=== PATIENT | male | born 1995 | race Caucasian/White ===

== ENCOUNTER 2016-07-09 00:14 | Emergency (ER) | payer BC | END 2016-07-09 01:56 | disposition home or self-care (01) | LOC: D.ER 00:14 | DX: S62.304A Unspecified fracture of fourth metacarpal bone, right hand, initial encounter for closed fracture (principal); W22.01XA Walked into wall, initial encounter; Y93.89 Activity, other specified; Y92.89 Other specified places as the place of occurrence of the external cause ==

== ENCOUNTER 2016-07-26 07:14 | Day surgery (SDC) | payer SELFPAY ==
[~2016-07-26] VITALS: Ht 193 cm; Wt 83.9 kg
[~2016-07-26 07:14] MED LIST: NORCO 7.5/325 T1 TA1 PO
[2016-07-26 08:31] VITALS: BP 131/76; Ht 193 cm; Wt 83.9 kg
--- NOTE | 2016-07-26 11:39 | NUR ---
RT ARM IN RR ON ADMIT
--- NOTE | 2016-07-26 11:44 | NUR ---
OPA IN AIRWAY ON ADMIT
[2016-07-26] MEDS ORDERED: HYDROCODONE-APA1 TAB (12:00)
--- NOTE | 2016-07-26 14:42 | NUR ---
1245 IV DC WITH CATHER TIP INTACT
--- NOTE | 2016-07-27 15:24 | OP ---
PATIENT NAME: TERRANCE SUE MEDICAL RECORD: [id number] :95 LOCATION:[facility] ADMISSION DATE: SURGEON: YENY LERNER MD DATE OF OPERATION: 07/26/2016 Orthopedic Surgery Operative Note PREOPERATIVE DIAGNOSIS: Displaced angulated right fifth metacarpal fracture. POSTOPERATIVE DIAGNOSIS: Displaced angulated right fifth metacarpal fracture. PROCEDURE: Open reduction of displaced right fifth metacarpal fracture. SURGEON: Yeny Lerner MD. ANESTHESIA: General. INTRAOPERATIVE COMPLICATIONS: None. SUMMARY OF PATHOLOGIC FINDINGS: This is essentially approximately 2-1/2 to 3 weeks out, which was consistent with what was seen at the time of surgery, early healing in a malunited position was beginning. OPERATIVE SUMMARY IN DETAIL: After obtaining the appropriate preoperative orthopedic surgery consent as well as anesthetic consultation, evaluation and clearance, the patient was brought to the operating room and placed on operating table in supine position. After general laryngeal mask was administered, tourniquet was placed about the proximal aspect of the right upper extremity. Right upper extremity was then prepped and draped in a routine sterile fashion. The arm was elevated and exsanguinated, tourniquet inflated to 250 mmHg. An incision was made along the dorsal lateral aspect of the right small finger. This was taken down to just proximal to the MCP joint. Dissection was carried down. Gentle incision was made over the dorsal felipe, saved for later reapproximation. The fracture was identified and all interposed early healing tissue was removed and then 2 K-wires were placed across the fracture, it was held in a reduced position for provisional fixation. This looked good on AP and lateral planes and then a small 1.7 T-plate was then placed with serial and sequential drill and fill technique using a combination of both compression and locking screws. This resulted in anatomic adventist. The provisional K wires were removed, radiographs were taken and submitted for final radiologist review. The wound was then copiously irrigated. The dorsal extensor mechanism was reapproximated using the 2-0 Vicryl. This was followed by 4-0 Prolene in running fashion. Sterile dressings were applied. Tourniquet was deflated. An ulnar gutter splint was applied and allowed to harden. The patient was awakened and taken to the recovery room in stable condition. All final needle and sponge counts were correct. TRANSINT:[id number] Voice Confirmation ID: [id number] DOCUMENT ID: [id number] OPERATIVE REPORT [id number] TERRANCE SUE MD, YENY EVANS at 1524 CC: [id number] DICTATION DATE: 07/26/16 1337 PASTER SUPERVISOR: 07/27/16 0215 [facility] 07/26/16 [place] [id number] [place] [id number]
== END 2016-07-26 13:15 | disposition home or self-care (01) ==
LOC: D.OPS 07:14 → D.PAN 09:45 → D.OPS 09:45
DX: S62.306A Unspecified fracture of fifth metacarpal bone, right hand, initial encounter for closed fracture (principal); X58.XXXA Exposure to other specified factors, initial encounter

== ENCOUNTER 2016-08-11 05:01 | Observation (INO) | payer SELFPAY ==
[2016-08-11] VITALS (13 sets, daily range): BP systolic 95–131; BP diastolic 65–91; Ht 193 cm; Wt 85.6 kg
[~2016-08-11] VITALS: Ht 193 cm; Wt 85.6 kg
--- NOTE | ~2016-08-11 | EC ---
PATIENT:TERRANCE SUE DATE OF SERVICE: 08/11/16 SEX: M MEDICAL RECORD: [id number] DATE OF : [birth year] LOCATION:[facility] AGE OF PATIENT: 21 ADMISSION DATE: 08/11/16 REFERRING PHYSICIAN: INTERPRETING PHYSICIAN: ARCELIA VALDEZ MD ECHOCARDIOGRAM REPORT ECHO CHARGES 4 ECHO COMPLETE CLINICAL DIAGNOSIS: BRADYCARDIA/METH OD ECHOCARDIOGRAPHIC MEASUREMENTS (adult normal given) AC root (d.<3.7cm) 3.1 LV Septum d (<1.2 cm> 0.9 Valve Excursion 2.5 LV Septum (systole) 1.4 Left Atria (s.<4.0cm> 2.7 LVPW d(<1.2cm) 1.1 RV (d.<2.3cm) 2.8 LVPW (sytole) 1.5 LV diastole(<5.6CM) 6.0 MV E-F(>70mm/sec) LV systole 4.1 LVOT Diameter 2.1 MV exc.(>10mm) Est.ejection fraction (50-75%) Pericardial Effusion N DOPPLER: LVIT A 48.0 E 77.0 LA RVSP 30.0 LVOT 102 AOP1/2T Asc. Ao 122 RVOT 74.0 RA PA 111 AV Gradient Peak 6.0 AV Mean 3.0 AV Area 2.8 MV Gradient Peak 3.8 MV Mean 1.7 MV Area COMMENTS: Landscape Specialist: Tania RAUSCHOE Administrative Underwriter:10 Dr. Pisano TAPE# PACS DATE OF SERVICE: 08/11/2016 TWO-DIMENSIONAL ECHOCARDIOGRAM WITH DOPPLER Adequate two-dimensional color flow imaging, spectral Doppler, and M mode. No left ventricular hypertrophy is present. Left ventricular internal dimensions are normal. Wall motion is normal. Ejection fraction is greater than or equal to 55%. The aortic valve is tricuspid with no evidence of stenosis on Doppler interrogation. Left atrium is normal. Mitral valve shows no prolapse with trace mitral regurgitation. Right-sided chambers are grossly normal with trace tricuspid ECHOCARDIOGRAM REPORT [id number] TERRANCE SUE regurgitation. ARCELIA VALDEZ MD CC: [id number] DICTATION DATE: 08/12/16 1200 TRACK LAYING MACHINE OPERATOR: DM 08/13/16 1458 DIS IN 08/12/16 [facility] [address] [facility] [address]
[~2016-08-11 05:01] MED LIST changes: +HYDROCODONE-APA1 TAB
[2016-08-11 05:43] LABS: BASOPHILS 0.2 % (0-2); EOSINOPHILS 0.8 % (0-7); HEMATOCRIT 40.7 % (42.0-54.0); HEMOGLOBIN 14.4 g/dL (13.5-17.5); IMMATURE GRANULOCYTES 0.1 % (0-5); LYMPHOCYTES 23.2 % (15-50); MCH 30.9 pg (26.0-34.0); MCHC 35.4 g/dL (31.0-37.0); MCV 87.3 fL (80.0-100.0); MEAN PLATELET VOLUME 9.7 fL (7.4-10.4); MONOCYTES 7.5 % (2-11); NEUTROPHILS 68.2 % (40-80); PLATELET COUNT 255 10x3/uL (130-400); RBC 4.66 10x6/uL (4.20-6.10); RDW 12.4 % (11.5-14.5); WBC 8.5 10x3/uL (4.8-10.8)
[2016-08-11 06:02] LABS: ALBUMIN 4.1 g/dL (3.4-5.0); ALKALINE PHOSPHATASE 111 U/L (46-116); ALT (SGPT) 12 U/L (10-68); CALC OSMOLALITY 275 mosm/kg (275-300); CALCIUM 8.2 mg/dL (8.5-10.1); CHLORIDE - SERUM 104 mmol/L (98-107); CREATININE - SERUM 1.2 mg/dL (0.6-1.3); GLUCOSE 122 mg/dL (74-106); PROTEIN - SERUM 7.3 g/dL (6.4-8.2); SODIUM 138 mmol/L (136-145); UREA NITROGEN 9 mg/dL (7-18); eGFR NON AFRICAN AMERICAN 81 mL/min (90-120)
[2016-08-11 06:05] LABS: UDS - AMPHET POSITIVE QUAL (NEGATIVE); UDS - BARB NEGATIVE QUAL (NEGATIVE); UDS - BENZO NEGATIVE QUAL (NEGATIVE); UDS - COCAINE NEGATIVE QUAL (NEGATIVE); UDS - METH NEGATIVE QUAL (NEGATIVE); UDS - OPIATE NEGATIVE QUAL (NEGATIVE); UDS - PCP NEGATIVE QUAL (NEGATIVE); UDS - THC NEGATIVE QUAL (NEGATIVE)
[2016-08-11 06:07] LABS: POTASSIUM - SERUM 2.7 mmol/L (3.5-5.1)
[2016-08-11 06:15] LABS: APPEARANCE CLEAR (CLEAR); BILIRUBIN NEGATIVE (NEGATIVE); COLOR YELLOW (YELLOW); GLUCOSE NEGATIVE (NEGATIVE); KETONE NEGATIVE (NEGATIVE); LEUKOCYTE ESTERASE TRACE (NEGATIVE); NITRITE NEGATIVE (NEGATIVE); PROTEIN 2+ mg/dL (NEGATIVE); UROBILINOGEN NORMAL (NORMAL)
[2016-08-11 06:16] LABS: BACTERIA FEW /hpf (NONE SEEN); EPITHELIAL CELLS 0-5 /hpf (0-5); RED CELLS - URINE 0-5 /hpf (0-5); WHITE CELLS - URINE 0-5 /hpf (0-5)
--- NOTE | 2016-08-11 10:30 | NUR ---
PT ARRIVED AT THIS TIME VIA BED ACCOMPANIED BY HOSPITAL STAFF. PT ABLE TO TRANSFER TO ICU BED WITH MOD ASSIST FROM STAFF. PT IS CONFUSED. WILL CONTINUE PLAN OF CARE.
--- NOTE | 2016-08-11 13:15 | NUR ---
AT BEDSIDE, PT MILDLY ANXIOUS AND WANTING TO LEAVE. HAD LENGTHY DISCUSSION REGARDING HIS HEALTH AND MAKING BETTER CHOICES. HE DOES NOT SEEM TO BE VERY OPEN TO FOLLOWING THROUGH WITH CARE PLAN. WILL CONTINUE TO MONITOR. REMOVED PULSE OX MONITOR. PT'S O2 SAT 99 ON ROOM AIR. WILL GIVE NICOTINE PATCH FOR TOBACCO CRAVING.
--- NOTE | 2016-08-11 13:40 | NUR ---
LAB AT BEDSIDE TO DRAW POTASSIUM
--- NOTE | 2016-08-11 15:54 | NUR ---
EXPERIENCE DESIGN DIRECTOR AT BEDSIDE.
--- NOTE | 2016-08-11 17:08 | NUR ---
PT RESTING IN BED WITH EYES CLOSED. RESP EQUAL AND UNLABORED. CALL LIGHT WITHIN REACH.
--- NOTE | 2016-08-11 19:30 | NUR ---
1930: Pt rec'd resting HOB 45 degrees with eyes open. Pupils KINZA+bilat. SMCx4 = weak bilat cooperative manager. Moves extrem x4 vs gravity. Pt reports "broken" right hand. Pt states he has a "little pain", but "not bad." Pt does not request pain Rx at this time. Breathing RA RR16x with SPO2 98%. Lungs clear bilat with auscultation. MMP and no cyanosis noted. S1S2 regular SR on CM. PPPx4=bilat. ABD soft NT BS x4 active. Pt denies difficulty wtih elimination. Pt states he has only one kidney. All monitors attached and alarms on. Bed Alarm on, SR up x2, Call light in reach and pt demostrates use. Emptied urinal, provided water, and adjusted room enviroment for pt comfort.
--- NOTE | 2016-08-11 20:45 | NUR ---
2045: Pt requested visitation schedule and password. Provided to patient. Pt denies any needs at this time. Pt talking on phone. Pt remains SR 80's on CM.
--- NOTE | 2016-08-11 21:00 | NUR ---
2100: Pt requested something for pain. Pt states he is "coming down from the drugs" he has taken. Pt states he has been taking "Percocet" and other pain killers for about "3 weeks." Discussed withdraw sx with patient who verbalozed understanding. Notifed ER MD (business unit controller) about pt condition and request. Librium ordered at this time.
[2016-08-12] VITALS (10 sets, daily range): BP systolic 104–118; BP diastolic 62–80
--- NOTE | 2016-08-12 01:00 | NUR ---
0100: Pt resting with eyes closed. Pt able to move self and is resting on left side. Pt SB/SR 55-65 bpm at this time. Pt remains on RA with RR16x with SPO2 97%. No change in IVF/UOP.
--- NOTE | 2016-08-12 04:30 | NUR ---
0430: Pt resting in bed with eyes closed. Pt remains SB/SR 55-65 bpm. No change in RESP/CV/NV status.
--- NOTE | 2016-08-12 09:41 | NUR ---
C/O RASH AND ITCHING. HAS RED RASH ON ANTERIOR/POSTERIOR TORSO AND RIGHT ARM. I CALLED DR. HEARN. ORDERS REC'D FOR SOLU-MEDROL 40MG IV X1.
[2016-08-12] MEDS ORDERED: MEDROL DOSE PACK4 MG PO (12:08)
--- NOTE | 2016-08-12 12:50 | NUR ---
1230 IN TO ROUND ON PT, NEW ORDERS TO DISCHARGE PT HOME. ALL PAPERWORK REVIEWED WITH PT. PT MOM IS PICKING PT UP FROM HOSPITAL. VSS, NO COMPLAINTS. ALL QUESTIONS ANSWERED. PIV REMOVED, PT DRESSED HIMSELF WITH OUT ANY DIFICULTY.
== END 2016-08-12 13:26 | disposition home or self-care (01) ==
LOC: D.ER 05:01 → D.ICU 08:33 → OBSVTIME 08:33 → D.ICU 08:33
PROVIDERS: Emergency Medicine; ADMIT Family Medicine
DX: T43.624A Poisoning by amphetamines, undetermined, initial encounter (principal); T51.0X4A Toxic effect of ethanol, undetermined, initial encounter; Y92.9 Unspecified place or not applicable; Z72.0 Tobacco use

== ENCOUNTER 2017-05-01 22:22 | Emergency (ER) | payer OTHER ==
[2016-08-11 11:06] VITALS: BMI 22.9
[~2017-05-01 22:22] MED LIST changes: +MEDROL DOSE PACK4 MG PO
== END 2017-05-02 00:05 | disposition home or self-care (01) ==
LOC: D.ER 22:22
DX: S09.90XA Unspecified injury of head, initial encounter (principal); Y04.2XXA Assault by strike against or bumped into by another person, initial encounter; Y93.89 Activity, other specified; Y92.89 Other specified places as the place of occurrence of the external cause; S00.03XA Contusion of scalp, initial encounter; S01.01XA Laceration without foreign body of scalp, initial encounter; F17.200 Nicotine dependence, unspecified, uncomplicated

== ENCOUNTER 2017-07-25 21:43 | Emergency (ER) | payer OTHER ==
[~2017-07-25] VITALS: Ht 193 cm; Wt 85.5 kg
[2017-07-25 21:53] VITALS: Ht 193 cm; Wt 85.5 kg
[2017-07-25 22:27] LABS: APPEARANCE TURBID (CLEAR); BILIRUBIN NEGATIVE (NEGATIVE); COLOR YELLOW (YELLOW); GLUCOSE NEGATIVE (NEGATIVE); KETONE NEGATIVE (NEGATIVE); NITRITE NEGATIVE (NEGATIVE); PROTEIN TRACE mg/dL (NEGATIVE); SPECIFIC GRAVITY 1.025 (1.005-1.020); UROBILINOGEN NORMAL (NORMAL)
[2017-07-25 22:30] LABS: BACTERIA MODERATE /hpf (NONE SEEN); EPITHELIAL CELLS 0-5 /hpf (0-5); MUCUS <1+ /lpf (NONE SEEN); RED CELLS - URINE 0-5 /hpf (0-5); WHITE CELLS - URINE >50 /hpf (0-5)
[2017-07-26 00:49] VITALS: BP 123/70
== END 2017-07-25 22:48 | disposition home or self-care (01) ==
LOC: D.ER 21:43
PROVIDERS: Family Medicine
DX: Z20.2 Contact with and (suspected) exposure to infections with a predominantly sexual mode of transmission (principal); R30.0 Dysuria; N39.0 Urinary tract infection, site not specified; F17.200 Nicotine dependence, unspecified, uncomplicated

== ENCOUNTER 2017-08-18 23:31 | Emergency (ER) | payer OTHER ==
[~2017-08-18] VITALS: Ht 193 cm; Wt 90.9 kg
[2017-08-18 23:38] VITALS: Ht 193 cm; Wt 90.9 kg
[2017-08-19 00:48] LABS: BASOPHILS 0.1 % (0-2); EOSINOPHILS 0.4 % (0-7); HEMATOCRIT 38.7 % (42.0-54.0); HEMOGLOBIN 13.7 g/dL (13.5-17.5); IMMATURE GRANULOCYTES 0.2 % (0-5); LYMPHOCYTES 6.7 % (15-50); MCH 31.1 pg (26.0-34.0); MCHC 35.4 g/dL (31.0-37.0); MEAN PLATELET VOLUME 9.3 fL (7.4-10.4); MONOCYTES 9.6 % (2-11); PLATELET COUNT 213 10x3/uL (130-400); RDW 12.7 % (11.5-14.5); WBC 11.9 10x3/uL (4.8-10.8)
[2017-08-19 00:58] LABS: ALBUMIN 3.3 g/dL (3.4-5.0); BILIRUBIN - TOTAL 0.75 mg/dL (0.2-1.3); CARBON DIOXIDE 26.4 mmol/L (21.0-32.0); CREATININE - SERUM 1.6 mg/dL (0.6-1.3); POTASSIUM - SERUM 3.4 mmol/L (3.5-5.1); PROTEIN - SERUM 6.3 g/dL (6.4-8.2)
[2017-08-19 01:13] LABS: APPEARANCE HAZY (CLEAR); BILIRUBIN 1+ (NEGATIVE); COLOR DK YELLOW (YELLOW); GLUCOSE NEGATIVE (NEGATIVE); KETONE SMALL mg/dL (NEGATIVE); NITRITE NEGATIVE (NEGATIVE); PROTEIN 1+ mg/dL (NEGATIVE)
[2017-08-19 01:14] LABS: UDS - AMPHET POSITIVE QUAL (NEGATIVE); UDS - BARB NEGATIVE QUAL (NEGATIVE); UDS - BENZO NEGATIVE QUAL (NEGATIVE); UDS - COCAINE NEGATIVE QUAL (NEGATIVE); UDS - OPIATE NEGATIVE QUAL (NEGATIVE); UDS - PCP NEGATIVE QUAL (NEGATIVE); UDS - THC NEGATIVE QUAL (NEGATIVE)
[2017-08-19 01:17] LABS: AMORPHOUS SEDIMENT >1+ /lpf (NONE SEEN); BACTERIA MANY /hpf (NONE SEEN); EPITHELIAL CELLS 0-5 /hpf (0-5); GRANULAR CAST OCC /lpf (NONE SEEN); HYALINE CAST 0-5 /lpf (NONE SEEN); MUCUS >1+ /lpf (NONE SEEN); RED CELLS - URINE 0-5 /hpf (0-5); SPERMATOZOA 25-50 /hpf (NONE SEEN); WHITE CELLS - URINE 0-5 /hpf (0-5)
[2017-08-19 18:06] VITALS: BP 112/62
== END 2017-08-19 18:10 | disposition home or self-care (01) ==
LOC: D.ER 23:31
PROVIDERS: Emergency Medicine
DX: F15.10 Other stimulant abuse, uncomplicated (principal); F17.200 Nicotine dependence, unspecified, uncomplicated

== ENCOUNTER 2018-04-27 14:03 | Emergency (ER) | payer OTHER ==
[~2018-04-27] VITALS: Ht 193 cm; Wt 94.5 kg
[2018-04-27 14:19] VITALS: Ht 193 cm; Wt 94.5 kg
[2018-04-27] MEDS ORDERED: GABAPENTIN100 MG PO (15:51)
[2018-04-27] MEDS ORDERED: ULTRAM50 MG PO (15:51)
[2018-04-27 16:01] VITALS: BP 134/64
== END 2018-04-27 16:02 | disposition home or self-care (01) ==
LOC: D.ER 14:03
DX: M79.671 Pain in right foot (principal)

== ENCOUNTER 2018-06-29 23:04 | Emergency (ER) | payer OTHER ==
[~2018-06-29] VITALS: Ht 193 cm; Wt 96.2 kg
[~2018-06-29 23:04] MED LIST changes: +GABAPENTIN100 MG PO; +ULTRAM50 MG PO
[2018-06-29 23:08] VITALS: Ht 193 cm; Wt 96.2 kg
[2018-06-29] MEDS ORDERED: BACLOFEN20 M1 PO (23:29)
[2018-06-29] MEDS ORDERED: VOLTAREN75 MG PO (23:29)
[2018-06-30 00:02] VITALS: BP 120/82
== END 2018-06-30 00:03 | disposition home or self-care (01) ==
LOC: D.ER 23:04
DX: M25.511 Pain in right shoulder (principal)

== ENCOUNTER 2018-10-31 12:00 | Emergency (ER) | payer SELFPAY ==
[~2018-10-31] VITALS: Ht 193 cm; Wt 100.0 kg
[~2018-10-31 12:00] MED LIST changes: +BACLOFEN20 M1 PO; +VOLTAREN75 MG PO
[2018-10-31 12:03] VITALS: Ht 193 cm; Wt 100.0 kg
[2018-10-31] MEDS ORDERED: ERYTHROMYCIN OPT1 GM EACH EYE (13:48)
[2018-10-31 14:08] VITALS: BP 121/65
== END 2018-10-31 14:09 | disposition home or self-care (01) ==
LOC: D.ER 12:00
DX: S05.02XA Injury of conjunctiva and corneal abrasion without foreign body, left eye, initial encounter (principal); X58.XXXA Exposure to other specified factors, initial encounter

== ENCOUNTER 2018-12-07 20:27 | Emergency (ER) | payer SELFPAY ==
[~2018-12-07] VITALS: Ht 193 cm; Wt 98.0 kg
[~2018-12-07 20:27] MED LIST changes: +ERYTHROMYCIN OPT1 GM EACH EYE
[2018-12-07 20:29] VITALS: Ht 193 cm; Wt 98.0 kg
[2018-12-07] MEDS ORDERED: IBUPROFEN800 MG PO (21:38)
[2018-12-07 22:09] VITALS: BP 167/71
== END 2018-12-07 22:09 | disposition home or self-care (01) ==
LOC: D.ER 20:27
DX: S93.402A Sprain of unspecified ligament of left ankle, initial encounter (principal); X50.1XXA Overexertion from prolonged static or awkward postures, initial encounter